=== PATIENT | female | born 1930 | race Caucasian/White ===

== ENCOUNTER 2018-09-06 17:54 | Emergency (ER) | payer MEDICARE, OTHER ==
[~2018-09-06] VITALS: Ht 162.6 cm; Wt 63.5 kg
[2018-09-06 17:55] VITALS: BP_SYST 143
[2018-09-06] MEDS ORDERED: ASPI-858 PO (18:15)
[2018-09-06] MEDS ORDERED: DONE10TA44 PO (18:15)
[2018-09-06] MEDS ORDERED: MULT-1117 PO (18:15)
[2018-09-06] MEDS ORDERED: CALC-823 PO (18:15)
[2018-09-06] MEDS ORDERED: MEMA10TA PO (18:15)
[2018-09-06] MEDS ORDERED: AMLO5TAB4 PO (18:15)
[2018-09-06] MEDS ORDERED: SILV50CR43 TD (18:15)
[2018-09-06] MEDS ORDERED: TRAZ-123 PO (18:15)
[2018-09-06] MEDS ORDERED: LIP20 PO (18:15)
[2018-09-06 18:44] LABS: HEMATOCRIT 36.6 % (36-48); HEMOGLOBIN 11.9 g/dL (12.0-16.0); MEAN CORPUSCULAR HEMOGLOBIN 29 pg (27-31); MEAN CORPUSCULAR HGB CONC 33 % (32-36); MEAN CORPUSCULAR VOLUME 90 fL (79.0-98.0); PLATELET COUNT (AUTO) 280 K/uL (130-430); RED BLOOD CELL COUNT(AUTO) 4.07 MIL/uL (4.2-6.2); RED CELL DISTRIBUTION WIDTH 14.6 % (9.0-15.0); WHITE BLOOD COUNT (AUTO) 10.9 K/uL (4.8-10.8)
[2018-09-06 18:48] LABS: BILIRUBIN,URINE NEGATIVE (NEGATIVE); BLOOD, URINE NEGATIVE (NEGATIVE); CLARITY/URINE CLEAR (CLEAR); COLOR,URINE YELLOW (YELLOW); GLUCOSE,URINE NEGATIVE (NEGATIVE); KETONES,URINE NEGATIVE (NEGATIVE); LEUKOCYTE ESTERASE ,URINE 1+ (NEGATIVE); NITRITE, URINE NEGATIVE (NEGATIVE); PH,URINE 6.5 (5.0-8.0); PROTEIN URINE NEGATIVE (NEGATIVE); UROBILINOGEN,URINE 0.2 (0.2-1.0)
[2018-09-06 18:48] LABS: BAND % (MANUAL) 1 % (0-6); BASOPHILS % (MANUAL) 0 % (0-2); EOSINOPHILS % (MANUAL) 0 % (0-7); LYMPHOCYTES % (MANUAL) 9 % (20-46); MONOCYTES % (MANUAL) 6 % (0-11)
[2018-09-06 18:50] LABS: ANION GAP 9 (5-15); CALCIUM 10.4 mg/dL (8.4-11.0); CHLORIDE 104 mmol/L (98-107); CREATININE 1.56 mg/dL (0.55-1.30); GLUCOSE 119 mg/dL (70-99); SODIUM SERUM 141 mmol/L (136-145); UREA NITROGEN, BLOOD 24 mg/dL (8-21)
[2018-09-06 18:51] LABS: PROTHROMBIN TIME 9.9 SECS (9.5-12.5)
[2018-09-06 18:55] LABS: ALANINE AMINOTRANSFERASE 23 U/L (12-78); ALBUMIN 3.7 g/dL (3.4-4.8); ASPARTATE AMINOTRANSFERASE 17 U/L (10-37); LIPASE 276 U/L (73-393); TOTAL BILIRUBIN 0.5 mg/dL (0.0-1.0)
[2018-09-06 19:00] LABS: BACTERIA,URINE MODERATE /HPF (None Seen); FINE GRANULAR CASTS,URINE 0-10 /LPF (None Seen); MUCUS,URINE None Seen /LPF (None Seen); RBC,URINE 0-3 /HPF (0-3); YEAST,URINE None Seen /HPF (None Seen)
[2018-09-06] MEDS ORDERED: cefTRIAXone 1 GM in D5W 50 ML IV ONE (20:00)
[2018-09-06] MEDS ORDERED: cefTRIAXone 1 GM VIAL ONE (20:03)
[2018-09-06] MEDS ORDERED: LORazepam 2 MG/ML VIAL IVP ONE (22:30)
[2018-09-06] MEDS ORDERED: LORazepam 2 MG/ML VIAL (FOR ER USE) ONE (22:36)
[2018-09-07 01:37] VITALS: BP_SYST 141
== END 2018-09-07 01:25 | disposition short-term general hospital (02) ==
LOC: SED 17:54
DX: K56.699 Other intestinal obstruction unspecified as to partial versus complete obstruction (principal); K80.20 Calculus of gallbladder without cholecystitis without obstruction; F03.90 Unspecified dementia, unspecified severity, without behavioral disturbance, psychotic disturbance, mood disturbance, and anxiety; R03.0 Elevated blood-pressure reading, without diagnosis of hypertension; Z88.6 Allergy status to analgesic agent; Z79.82 Long term (current) use of aspirin; Z79.899 Other long term (current) drug therapy
CPT/HCPCS: 36415; 74176; 80053; 81000; 83605; 83690; 85007; 85027; 85610; 87040; 87086; 96365; 96375; 99285; J0696; J2060

== ENCOUNTER 2019-10-23 17:02 | Emergency (ER) | payer MEDICARE, OTHER ==
[~2019-10-23] VITALS: Ht 160 cm; Wt 59.0 kg
[2019-10-23 17:02] VITALS: BP_SYST 180
[~2019-10-23 17:02] MED LIST: AMLO5TAB4 PO; ASPI-858 PO; CALC-823 PO; DONE10TA44 PO; LIP20 PO; MEMA10TA PO; MULT-1117 PO; SILV50CR43 TD; TRAZ-250 PO
--- NOTE | 2019-10-23 17:02 | NUR ---
Patient to ER bed 05 to gown for evaluation. Side rails up. Placed on continuous whale trainer and VS.
--- NOTE | 2019-10-23 17:03 | NUR ---
Patient brought in by ambulance in the ED for altered LOC per facility. Denied any recent trauma or falls. Denied any chest pain, SOB or dizziness. Patient is alert and oriented x2, respirations even and unlabored, speaking in full sentences, and ambulating with assistance. VSS, pain level 0/10. Informed of the wait time. Instructed to notify ED staff for any changes in condition or worsening of symptoms. Patient verbalized understanding.
--- NOTE | 2019-10-23 17:40 | NUR ---
Patient ambulated to the bathroom with assistance. Urine specimen collected. Patient tolerated the procedure well.
--- NOTE | 2019-10-23 18:00 | NUR ---
X-ray done at bedside. Patient tolerated the procedure well.
--- NOTE | 2019-10-23 18:02 | NUR ---
Patient vomited once.
--- NOTE | 2019-10-23 18:04 | NUR ---
MRSA swab done. Handed to the track laborer.
--- NOTE | 2019-10-23 18:06 | NUR ---
Blood specimen collected at bedside. Patient tolerated the procedure well.
[2019-10-23 18:16] LABS: BILIRUBIN,URINE NEGATIVE (NEGATIVE); BLOOD, URINE NEGATIVE (NEGATIVE); CLARITY/URINE CLEAR (CLEAR); COLOR,URINE YELLOW (YELLOW); GLUCOSE,URINE NEGATIVE (NEGATIVE); KETONES,URINE TRACE (NEGATIVE); LEUKOCYTE ESTERASE ,URINE NEGATIVE (NEGATIVE); NITRITE, URINE NEGATIVE (NEGATIVE); PH,URINE 7.5 (5.0-8.0); PROTEIN URINE TRACE (NEGATIVE); UROBILINOGEN,URINE 0.2 (0.2-1.0)
[2019-10-23 18:31] LABS: BASOPHILS % (AUTO) 0.6 % (0.0-2.0); EOSINOPHILS % (AUTO) 0.6 % (0.0-4.0); HEMATOCRIT 38.4 % (36-48); LYMPHOCYTES # (AUTO) 0.9 K/uL (1.0-5.5); LYMPHOCYTES % (AUTO) 12.6 % (20.5-51.5); MEAN CORPUSCULAR HEMOGLOBIN 30 pg (27-31); MEAN CORPUSCULAR HGB CONC 34 % (32-36); MEAN CORPUSCULAR VOLUME 88 fL (79.0-98.0); MONOCYTES # (AUTO) 0.7 K/uL (0.0-1.0); MONOCYTES % (AUTO) 9.4 % (1.7-9.3); NEUTROPHILS # (AUTO) 5.5 K/uL (1.8-7.7); NEUTROPHILS % (AUTO) 76.8 % (40.0-70.0); PLATELET COUNT (AUTO) 233 K/uL (130-430); RED BLOOD CELL COUNT(AUTO) 4.37 MIL/uL (4.2-6.2); RED CELL DISTRIBUTION WIDTH 14.2 % (9.0-15.0); WHITE BLOOD COUNT (AUTO) 7.2 K/uL (4.8-10.8)
[2019-10-23 18:38] LABS: BACTERIA,URINE None Seen /HPF (None Seen); RBC,URINE 0-3 /HPF (0-3); WBC,URINE 0-3 /HPF (0-3)
[2019-10-23 18:39] LABS: MUCUS,URINE None Seen /LPF (None Seen); URINE AMORPHOUS PHOSPHATES 1+ /HPF (None Seen)
[2019-10-23 18:47] LABS: ANION GAP 11 (5-15); CALCIUM 9.3 mg/dL (8.4-11.0); CHLORIDE 100 mmol/L (98-107); CREATININE 1.25 mg/dL (0.55-1.30); GLUCOSE 117 mg/dL (70-99); POTASSIUM 4.1 mmol/L (3.5-5.1); PROTHROMBIN TIME 9.9 SECS (9.5-12.5); SODIUM SERUM 136 mmol/L (136-145); UREA NITROGEN, BLOOD 22 mg/dL (8-21)
[2019-10-23 18:53] LABS: ALANINE AMINOTRANSFERASE 21 U/L (12-78); ASPARTATE AMINOTRANSFERASE 20 U/L (10-37); TOTAL BILIRUBIN 0.9 mg/dL (0.0-1.0)
[2019-10-23 20:29] VITALS: BP_SYST 118
--- NOTE | 2019-10-23 20:29 | NUR ---
Patient and BLS transport given written and verbal discharge instructions and verbalizes understanding. ER MD discussed with patient the results and treatment provided. Patient in stable condition. ID arm band removed. No RX given. Patient educated on pain management and to follow up with PMD. Pain Scale 0/10 Opportunity for questions provided and answered. Medication side effect fact sheet provided.
== END 2019-10-23 20:29 | disposition home or self-care (01) ==
LOC: SED 17:02
DX: F03.90 Unspecified dementia, unspecified severity, without behavioral disturbance, psychotic disturbance, mood disturbance, and anxiety (principal); I10 Essential (primary) hypertension; E78.5 Hyperlipidemia, unspecified; Z88.5 Allergy status to narcotic agent; Z79.899 Other long term (current) drug therapy; Z79.82 Long term (current) use of aspirin
CPT/HCPCS: 36415; 71045; 80053; 81000-TC; 83605; 84484; 85025; 85610-TC; 85730-TC; 87040-TC; 87086; 93005; 99284

== ENCOUNTER 2020-08-08 05:41 | Emergency (ER) | payer MEDICARE, OTHER ==
[~2020-08-08] VITALS: Ht 162.6 cm; Wt 68.0 kg
[2020-08-08 05:41] VITALS: BP_SYST 170
[2020-08-08] MEDS ORDERED: MORPHINE 4 MG/ML INJ. SYRINGE IVP ONE (06:30)
[2020-08-08 09:17] VITALS: BP_SYST 144
== END 2020-08-08 08:37 | disposition home or self-care (01) ==
LOC: SED 05:41
DX: S50.812A Abrasion of left forearm, initial encounter (principal); I10 Essential (primary) hypertension; Z88.5 Allergy status to narcotic agent; Z79.82 Long term (current) use of aspirin; Z79.899 Other long term (current) drug therapy; W18.39XA Other fall on same level, initial encounter; Y93.89 Activity, other specified; Y92.89 Other specified places as the place of occurrence of the external cause; Y99.8 Other external cause status
CPT/HCPCS: 72170; 73060; 73090; 96374; 99284; J2270